=== PATIENT | female | born 1930 | race Caucasian/White ===

== ENCOUNTER 2021-07-21 10:42 | Inpatient (IN) | payer BC, OTHER ==
[2021-07-21 12:01] LABS: BASO % 0.2 % (0-2.0); EOS % 0.4 % (0-4.5); HEMATOCRIT 39.6 % (32.4-45.2); HEMOGLOBIN 13.4 GM/dL (10.7-15.3); LYMPH % 6.1 % (8-40); MCH 32.1 pg (25.7-33.7); MCHC 33.8 g/dl (32.0-36.0); MEAN PLT VOLUME 9.5 fl (7.5-11.1); MONO % 6.6 % (3.8-10.2); NEUT % 86.7 % (42.8-82.8); PLATELET COUNT 115 10^3/uL (134-434); RBC 4.17 M/mm3 (3.60-5.2); RDW 14.7 % (11.6-15.6); WHITE BLOOD COUNT 7.9 K/mm3 (4.0-10.0)
[2021-07-21 12:07] LABS: INR 1.07 (0.83-1.09); PROTHROMBIN TIME (PATIENT) 12.3 SEC (9.7-13.0)
[2021-07-21 12:09] LABS: ACTIVATED PTT 29.8 SECONDS (25.2-36.5)
[2021-07-21 12:24] LABS: ALBUMIN 3.9 g/dl (3.4-5.0); BLOOD UREA NITROGEN 32.5 mg/dL (7-18); CALCIUM 8.3 mg/dL (8.5-10.1)
[2021-07-21 12:28] LABS: CREATININE 1.7 mg/dL (0.55-1.3)
[2021-07-21 12:29] LABS: BILIRUBIN,TOTAL 0.4 mg/dL (0.2-1); TOT PROT 7.9 g/dl (6.4-8.2)
[2021-07-21] MEDS ORDERED: METOPROLOL TARTRATE 5 MG/5 ML VIAL IVPUSH ONE ×4 (12:31→17:59)
[2021-07-21] MEDS ORDERED: levETIRAcetam 500 MG/5 ML INJECTION VIAL IVPB ONE ×2 (12:31→12:36)
[2021-07-21] MEDS ORDERED: SODIUM CHLORIDE 0.9% 500 ML INFUS.BAG IV ONE (12:34)
[2021-07-21] MEDS ORDERED: METOPROLOL TARTRATE 5 MG/5 ML VIAL ONE ×4 (12:36→18:01)
[2021-07-21 12:41] LABS: LACTIC ACID 6.3 mmol/L (0.4-2.0)
[2021-07-21 13:48] LABS: EPI CELLS 19 /uL (0-25.1); HYALINE CASTS 3 /uL (0-3.1); PH,URINE 5.5 (5.0-8.0); URINE APPEARANCE CLEAR; URINE BACTERIA 35 /uL (0-1359); URINE BILIRUBIN NEGATIVE (NEGATIVE); URINE COLOR YELLOW; URINE GLUCOSE (UA) NEGATIVE (NEGATIVE); URINE KETONE NEGATIVE (NEGATIVE); URINE LEUK ESTERASE NEGATIVE (NEGATIVE); URINE NITRITE NEGATIVE (NEGATIVE); URINE PROTEIN 3+ (NEGATIVE); URINE RBC 20 /uL (0-23.9); URINE UROBILINOGEN 0.2 mg/dL (0.2-1.0); URINE WBC 8 /uL (0-25.8)
[2021-07-21] MEDS ORDERED: DEXAMETHASONE SOD PHOSPHATE 4 MG/1 ML VIAL IVPUSH ONE (14:47)
[2021-07-21] MEDS ORDERED: DEXAMETHASONE SOD PHOSPHATE 4 MG/1 ML VIAL ONE (15:10)
[2021-07-21] MEDS ORDERED: LORazepam 2 MG/ML SDV VIAL IVPB PRN (16:22)
[2021-07-21] MEDS ORDERED: ACETAMINOPHEN 1000 MG/100 ML BAG IVPB PRN (16:22)
[2021-07-21] MEDS: NICARDIPINE 25 MG in DEXTROSE 5%-WATER - 240 ML IVPB SCH (18:57)
[2021-07-21] MEDS ORDERED: PANTOPRAZOLE SODIUM 40 MG VIAL ONE (20:54)
[2021-07-21] MEDS: PANTOPRAZOLE SODIUM 40 MG VIAL IVPUSH SCH (21:01)
[2021-07-22 07:04] LABS: BASO % 0.2 % (0-2.0); EOS % 0.2 % (0-4.5); HEMATOCRIT 35.5 % (32.4-45.2); HEMOGLOBIN 11.8 GM/dL (10.7-15.3); LYMPH % 10.3 % (8-40); MCH 31.4 pg (25.7-33.7); MCHC 33.2 g/dl (32.0-36.0); MEAN CELL VOLUME 94.7 fl (80-96); MONO % 10.8 % (3.8-10.2); NEUT % 78.5 % (42.8-82.8); PLATELET COUNT 112 10^3/uL (134-434); RBC 3.75 M/mm3 (3.60-5.2); RDW 14.2 % (11.6-15.6); WHITE BLOOD COUNT 11.2 K/mm3 (4.0-10.0)
[2021-07-22 07:15] LABS: CALCIUM 7.5 mg/dL (8.5-10.1)
[2021-07-22 07:16] LABS: ALBUMIN 3.5 g/dl (3.4-5.0); BLOOD UREA NITROGEN 31.7 mg/dL (7-18); MAGNESIUM 1.9 mg/dL (1.8-2.4)
[2021-07-22 07:19] LABS: CREATININE 1.3 mg/dL (0.55-1.3); PHOSPHOROUS 3.5 mg/dL (2.5-4.9)
[2021-07-22 07:21] LABS: BILIRUBIN,TOTAL 0.7 mg/dL (0.2-1)
[2021-07-22] MEDS ORDERED: levETIRAcetam 500 MG/5 ML INJECTION VIAL IVPB SCH (10:00)
[2021-07-22] MEDS: PANTOPRAZOLE SODIUM 40 MG VIAL IVPUSH SCH (10:45)
[2021-07-22] MEDS: MUPIROCIN 2% TOPICAL OINTMENT FOR DECOLONIZATION NS SCH ×2 (10:46→22:05)
[2021-07-22] MEDS ORDERED: hydrALAZINE HCL 20 MG/ML VIAL IVPB PRN (11:31)
[2021-07-22] MEDS: LABETALOL HCL 5 MG/1 ML (100MG/20 ML VIAL) IVPUSH SCH ×3 (12:06→21:17)
[2021-07-22] MEDS: NICARDIPINE 25 MG in DEXTROSE 5%-WATER - 240 ML IVPB SCH (21:16)
[2021-07-22] MEDS: levETIRAcetam 500 MG/5 ML INJECTION VIAL IVPB SCH (22:02)
[2021-07-22] MEDS: CHLORHEXIDINE GLUCONATE 4% CLEANSER FOR DECOLONIZATION TP SCH (22:02)
[2021-07-22] MEDS ORDERED: ACETAMINOPHEN 1000 MG/100 ML BAG IVPB PRN (23:52)
[2021-07-23] MEDS: LABETALOL HCL 5 MG/1 ML (100MG/20 ML VIAL) IVPUSH SCH ×4 (04:56→22:21)
[2021-07-23 07:17] LABS: HEMATOCRIT 34.7 % (32.4-45.2); HEMOGLOBIN 11.7 GM/dL (10.7-15.3); MCH 32.1 pg (25.7-33.7); MCHC 33.7 g/dl (32.0-36.0); MEAN CELL VOLUME 95.1 fl (80-96); MEAN PLT VOLUME 9.9 fl (7.5-11.1); PLATELET COUNT 111 10^3/uL (134-434); RBC 3.64 M/mm3 (3.60-5.2); RDW 14.4 % (11.6-15.6); WHITE BLOOD COUNT 9.6 K/mm3 (4.0-10.0)
[2021-07-23 07:33] LABS: CALCIUM 7.4 mg/dL (8.5-10.1); MAGNESIUM 2.3 mg/dL (1.8-2.4)
[2021-07-23 07:34] LABS: BLOOD UREA NITROGEN 32.3 mg/dL (7-18)
[2021-07-23 07:36] LABS: PHOSPHOROUS 4.7 mg/dL (2.5-4.9)
[2021-07-23 07:37] LABS: CREATININE 1.3 mg/dL (0.55-1.3)
[2021-07-23] MEDS: levETIRAcetam 500 MG/5 ML INJECTION VIAL IVPB SCH ×2 (10:11→21:34)
[2021-07-23] MEDS: MUPIROCIN 2% TOPICAL OINTMENT FOR DECOLONIZATION NS SCH ×2 (10:11→22:20)
[2021-07-23] MEDS: PANTOPRAZOLE SODIUM 40 MG VIAL IVPUSH SCH (10:11)
[2021-07-23] MEDS: hydrALAZINE HCL 20 MG/ML VIAL IVPB PRN (10:17)
[2021-07-23 11:45] VITALS: BMI 24.1
[2021-07-23] MEDS: CHLORHEXIDINE GLUCONATE 4% CLEANSER FOR DECOLONIZATION TP SCH (22:21)
[2021-07-24] MEDS: LABETALOL HCL 5 MG/1 ML (100MG/20 ML VIAL) IVPUSH SCH ×4 (03:50→21:59)
[2021-07-24 08:37] LABS: HEMATOCRIT 31.7 % (32.4-45.2); HEMOGLOBIN 10.9 GM/dL (10.7-15.3); MCH 32.7 pg (25.7-33.7); MCHC 34.5 g/dl (32.0-36.0); MEAN CELL VOLUME 94.8 fl (80-96); MEAN PLT VOLUME 9.7 fl (7.5-11.1); PLATELET COUNT 92 10^3/uL (134-434); RBC 3.34 M/mm3 (3.60-5.2); WHITE BLOOD COUNT 7.7 K/mm3 (4.0-10.0)
[2021-07-24 08:51] LABS: CALCIUM 7.3 mg/dL (8.5-10.1); MAGNESIUM 2.2 mg/dL (1.8-2.4)
[2021-07-24 08:53] LABS: PHOSPHOROUS 4.7 mg/dL (2.5-4.9)
[2021-07-24 08:55] LABS: CREATININE 1.1 mg/dL (0.55-1.3)
[2021-07-24] MEDS: levETIRAcetam 500 MG/5 ML INJECTION VIAL IVPB SCH ×2 (09:59→22:09)
[2021-07-24] MEDS: PANTOPRAZOLE SODIUM 40 MG VIAL IVPUSH SCH (10:00)
[2021-07-24] MEDS: MULTIVIT-MINERALS ORAL LIQUID PO SCH (10:04)
[2021-07-25] MEDS: LABETALOL HCL 5 MG/1 ML (100MG/20 ML VIAL) IVPUSH SCH ×2 (04:00→09:31)
[2021-07-25] MEDS: levETIRAcetam 500 MG TABLET (FP) PO SCH ×2 (09:29→22:41)
[2021-07-25] MEDS: PANTOPRAZOLE 40 MG TABLET PO SCH (09:29)
[2021-07-25] MEDS: LABETALOL HCL 200 MG TABLET (FP) PO SCH ×2 (09:29→10:42)
[2021-07-25] MEDS: MULTIVIT-MINERALS ORAL LIQUID PO SCH (09:30)
[2021-07-25] MEDS ORDERED: amLODIPine BESYLATE 5 MG TABLET (FP) PO SCH (10:00)
[2021-07-25] MEDS: RAMIPRIL 5 MG CAPSULE PO SCH (12:12)
[2021-07-25 13:56] LABS: CREATININE 1.2 mg/dL (0.55-1.3)
[2021-07-25 13:57] LABS: CALCIUM 9.2 mg/dL (8.5-10.1)
[2021-07-25] MEDS ORDERED: amLODIPine BESYLATE 5 MG TABLET (FP) PO ONE (15:36)
[2021-07-26] MEDS: hydrALAZINE HCL 20 MG/ML VIAL IVPB PRN (02:00)
[2021-07-26] MEDS ORDERED: ACETAMINOPHEN 1000 MG/100 ML BAG IVPB ONE (04:39)
[2021-07-26] MEDS: hydrALAZINE HCL 25 MG TABLET (FP) PO SCH ×3 (08:21→22:50)
[2021-07-26 09:21] LABS: ALBUMIN 3.3 g/dl (3.4-5.0); BLOOD UREA NITROGEN 29.6 mg/dL (7-18)
[2021-07-26 09:24] LABS: CREATININE 1.1 mg/dL (0.55-1.3)
[2021-07-26 09:25] LABS: BILIRUBIN,TOTAL 0.6 mg/dL (0.2-1)
[2021-07-26 09:26] LABS: TOT PROT 6.7 g/dl (6.4-8.2)
[2021-07-26 09:28] LABS: CALCIUM 7.2 mg/dL (8.5-10.1)
[2021-07-26] MEDS ORDERED: DEXTROSE 5%-WATER - 1,000 ML IV SCH (09:30)
[2021-07-26] MEDS: levETIRAcetam 500 MG TABLET (FP) PO SCH ×2 (10:43→22:50)
[2021-07-26] MEDS: LABETALOL HCL 200 MG TABLET (FP) PO SCH ×2 (10:43→22:50)
[2021-07-26] MEDS: RAMIPRIL 5 MG CAPSULE PO SCH (10:43)
[2021-07-26] MEDS: PANTOPRAZOLE 40 MG TABLET PO SCH (10:43)
[2021-07-26] MEDS: amLODIPine BESYLATE 10 MG TABLET (FP) PO SCH (10:43)
[2021-07-26] MEDS: KCL 10 MEQ IVPB 10 MEQ/100 ML INFUS.BAG IVPB SCH ×2 (13:07→14:56)
[2021-07-26] MEDS: MULTIVIT-MINERALS ORAL LIQUID PO SCH (13:07)
[2021-07-27] MEDS: hydrALAZINE HCL 25 MG TABLET (FP) PO SCH ×3 (06:09→23:06)
[2021-07-27 08:41] LABS: ALBUMIN 3.3 g/dl (3.4-5.0); BLOOD UREA NITROGEN 25.5 mg/dL (7-18)
[2021-07-27 08:44] LABS: CREATININE 1.2 mg/dL (0.55-1.3); PHOSPHOROUS 1.7 mg/dL (2.5-4.9)
[2021-07-27 08:46] LABS: TOT PROT 6.4 g/dl (6.4-8.2)
[2021-07-27 08:47] LABS: BILIRUBIN,TOTAL 0.7 mg/dL (0.2-1)
[2021-07-27 09:30] LABS: HEMATOCRIT 32.9 % (32.4-45.2); HEMOGLOBIN 11.5 GM/dL (10.7-15.3); MCH 32.9 pg (25.7-33.7); MCHC 34.8 g/dl (32.0-36.0); MEAN CELL VOLUME 94.5 fl (80-96); MEAN PLT VOLUME 10.4 fl (7.5-11.1); PLATELET COUNT 106 10^3/uL (134-434); RBC 3.48 M/mm3 (3.60-5.2); RDW 13.8 % (11.6-15.6); WHITE BLOOD COUNT 6.9 K/mm3 (4.0-10.0)
[2021-07-27 10:30] LABS: ANISOCYTOSIS 0; HELMET CELLS 0; HOWELL-JOLLY BODIES 0; MACROCYTOSIS 0; OVALOCYTE 0; PLATELET ESTIMATE DECREASED; ROULEAU 0; SICKELED CELLS 0; TARGET CELLS 0; TEAR DROP CELLS 0; TOXIC GRANULATION 0
[2021-07-27] MEDS: levETIRAcetam 500 MG TABLET (FP) PO SCH ×2 (10:59→23:06)
[2021-07-27] MEDS: RAMIPRIL 5 MG CAPSULE PO SCH (10:59)
[2021-07-27] MEDS: LABETALOL HCL 200 MG TABLET (FP) PO SCH ×2 (11:00→23:06)
[2021-07-27] MEDS: PANTOPRAZOLE 40 MG TABLET PO SCH (11:00)
[2021-07-27] MEDS: amLODIPine BESYLATE 10 MG TABLET (FP) PO SCH (11:00)
[2021-07-27] MEDS: MULTIVIT-MINERALS ORAL LIQUID PO SCH (11:00)
[2021-07-27] MEDS: KCL 10 MEQ IVPB 10 MEQ/100 ML INFUS.BAG IVPB SCH ×2 (11:40→13:15)
[2021-07-27] MEDS ORDERED: DEXTROSE 5%-WATER - 1,000 ML IV SCH (11:45)
[2021-07-27] MEDS ORDERED: HALOPERIDOL LACTATE 5 MG/ML IM ONE (12:08)
[2021-07-27] MEDS ORDERED: RAMIPRIL 5 MG CAPSULE PO ONE (12:15)
[2021-07-28] MEDS: hydrALAZINE HCL 25 MG TABLET (FP) PO SCH ×4 (06:32→21:34)
[2021-07-28 09:52] LABS: CHLORIDE 106 mmol/L (98-107); SODIUM 141 mmol/L (136-145)
[2021-07-28] MEDS: MULTIVIT-MINERALS ORAL LIQUID PO SCH (09:53)
[2021-07-28] MEDS: amLODIPine BESYLATE 10 MG TABLET (FP) PO SCH (09:53)
[2021-07-28] MEDS: LABETALOL HCL 200 MG TABLET (FP) PO SCH ×2 (09:53→21:34)
[2021-07-28] MEDS: PANTOPRAZOLE 40 MG TABLET PO SCH (09:53)
[2021-07-28] MEDS: levETIRAcetam 500 MG TABLET (FP) PO SCH ×2 (09:53→21:34)
[2021-07-28 09:59] LABS: ALBUMIN 3.3 g/dl (3.4-5.0); BLOOD UREA NITROGEN 25.9 mg/dL (7-18); CALCIUM 7.1 mg/dL (8.5-10.1); CO2 28 mmol/L (21-32); GLUCOSE,RANDOM 98 mg/dL (74-106)
[2021-07-28] MEDS ORDERED: RAMIPRIL 5 MG CAPSULE PO SCH (10:00)
[2021-07-28 10:02] LABS: CREATININE 1.5 mg/dL (0.55-1.3); SGPT/ALT 30 U/L (13-61)
[2021-07-28 10:03] LABS: SGOT/AST 37 U/L (15-37)
[2021-07-28 10:04] LABS: BILIRUBIN,TOTAL 0.8 mg/dL (0.2-1)
[2021-07-28 10:05] LABS: ALK PHOS 54 U/L (45-117)
[2021-07-28 10:06] LABS: ANION GAP 8 MMOL/L (8-16)
[2021-07-28] MEDS ORDERED: MAGNESIUM SULF 50% (8.12 MEQ/2 ML-1 GM VIAL) IVPB ONE (11:30)
[2021-07-28] MEDS: POTASSIUM CHLORIDE TABS 10 MEQ TABLET.ER (FP) PO ONE ×2 (13:08→13:15)
[2021-07-28] MEDS ORDERED: POTASSIUM CHLORIDE ORAL LIQUID 20 MEQ/15 ML PO ONE (13:33)
[2021-07-28] MEDS: KCL 10 MEQ IVPB 10 MEQ/100 ML INFUS.BAG IVPB SCH ×3 (14:05→17:01)
[2021-07-28] MEDS ORDERED: HALOPERIDOL LACTATE 5 MG/ML IM ONE (16:23)
[2021-07-28 19:32] LABS: CALCIUM 7.3 mg/dL (8.5-10.1)
[2021-07-28 19:33] LABS: BLOOD UREA NITROGEN 27.6 mg/dL (7-18)
[2021-07-28 19:36] LABS: CREATININE 1.7 mg/dL (0.55-1.3)
[2021-07-29] MEDS: hydrALAZINE HCL 25 MG TABLET (FP) PO SCH (06:28)
[2021-07-29 08:04] LABS: CHLORIDE 109 mmol/L (98-107); SODIUM 141 mmol/L (136-145)
[2021-07-29 08:13] LABS: ANION GAP 8 MMOL/L (8-16); BLOOD UREA NITROGEN 29.9 mg/dL (7-18); CO2 24 mmol/L (21-32); GLUCOSE,RANDOM 98 mg/dL (74-106)
[2021-07-29 08:16] LABS: CREATININE 1.8 mg/dL (0.55-1.3)
[2021-07-29 08:23] LABS: CALCIUM 6.9 mg/dL (8.5-10.1)
[2021-07-29] MEDS ORDERED: POTASSIUM CHLORIDE TABS 20 MEQ TABLET.ER (FP) PO ONE (08:45)
[2021-07-29] MEDS ORDERED: POTASSIUM CHLORIDE ORAL LIQUID 20 MEQ/15 ML PO ONE (09:43)
[2021-07-29] MEDS ORDERED: RAMIPRIL 5 MG CAPSULE PO SCH (10:00)
[2021-07-29] MEDS: amLODIPine BESYLATE 10 MG TABLET (FP) PO SCH (10:30)
[2021-07-29] MEDS: MULTIVIT-MINERALS ORAL LIQUID PO SCH (10:30)
[2021-07-29] MEDS: PANTOPRAZOLE 40 MG TABLET PO SCH (10:30)
[2021-07-29] MEDS: LABETALOL HCL 200 MG TABLET (FP) PO SCH (10:30)
[2021-07-29] MEDS: levETIRAcetam 500 MG TABLET (FP) PO SCH (10:31)
[2021-07-29 13:08] VITALS: BP 145/73; PULSE 63; TEMP 97.3
== END 2021-07-29 14:02 | DRG 64 ==
LOC: JER 10:42 → JERBED 12:02 → JICU 07-22 00:40 → J4W 07-23 19:18
PROVIDERS: ADMIT Family Medicine; ATTEND Family Medicine
DX: I61.9 Nontraumatic intracerebral hemorrhage, unspecified (principal); R53.2 Functional quadriplegia; I21.A1 Myocardial infarction type 2; I16.1 Hypertensive emergency; N17.9 Acute kidney failure, unspecified; E87.0 Hyperosmolality and hypernatremia; E03.9 Hypothyroidism, unspecified; I10 Essential (primary) hypertension; E78.5 Hyperlipidemia, unspecified; Z74.01 Bed confinement status
CPT/HCPCS: 36415; 70450-TC; 71045-TC-FY; 72125-TC; 74018-TC-FY; 80048; 80053; 81003; 82550; 82553; 82962; 83605; 83735; 84100; 84484; 85025; 85027; 85610; 85730; 86850; 86900; 86901; 87040; 87086; 93005; 93010; 97162-GP; 99285-25; C9803; U0003; U0005